=== PATIENT | female | born 1940 | race Caucasian/White ===

== ENCOUNTER 2017-01-25 08:15 | Outpatient (CLI) | payer MEDICARE, BC ==
[2017-01-25 09:05] LABS: ALT (SGPT) 14 U/L (0-55); AST (SGOT) 16 U/L (5-34); Albumin 4.2 g/dL (3.4-4.8); Alkaline Phosphatase 97 U/L (40-150); Anion Gap 12 mmol/L (10-20); BUN (Urea Nitrogen) 15 mg/dL (9.8-20.1); Bilirubin, Direct 0.3 mg/dL (0.1-0.3); Bilirubin, Total 0.6 mg/dL (0.2-1.2); Calc. Creatinine Clearance 0 mL/min (70-130); Calcium 9.3 mg/dL (7.8-10.44); Carbon Dioxide 28 mmol/L (23-31); Cardiac Risk 2.4 (Less than 4.5); Chloride 105 mmol/L (98-107); Cholesterol 190 mg/dL (< 200 Desired); Estimated GFR-MDRD 87; Glucose 95 mg/dL (83-110); HDL Cholesterol 79 mg/dL (>60 Neg Risk); LDL Cholesterol, Calculated 100 mg/dL; Potassium 4.2 mmol/L (3.5-5.1); Protein, Total 6.7 g/dL (5.8-8.1); Sodium 141 mmol/L (136-145); Triglycerides 55 mg/dL (Less than 150)
== END 2017-01-25 08:16 ==
LOC: MADLABBHPM 08:15
PROVIDERS: ATTEND Family Medicine
DX: E03.9 Hypothyroidism, unspecified (principal)
CPT/HCPCS: 36415; 80048; 80061; 80076; 84443

== ENCOUNTER 2019-06-29 09:55 | Outpatient (CLI) | payer MEDICARE, BC ==
--- NOTE | 2019-06-29 11:01 | RAD ---
EXAM: Chest 2 views: HISTORY: Chest pain COMPARISON: None. FINDINGS: There is a normal-sized cardiomediastinal silhouette. There is no evidence of consolidation, mass, or pleural effusion. The bones are unremarkable. IMPRESSION: No evidence of acute cardiopulmonary disease
--- NOTE | 2019-06-29 11:11 | RAD ---
EXAM: Left Rib series HISTORY: Chest and left rib pain COMPARISON: None FINDINGS: Multiple views of the left ribs shows no evidence of displaced rib fracture. No underlying pleural th ickening or pneumothorax are seen. IMPRESSION: 1. No evidence of displaced rib fracture.
== END 2019-06-29 09:56 | disposition home or self-care (01) ==
LOC: MADEKG 09:55
PROVIDERS: ATTEND Family Medicine
DX: R07.9 Chest pain, unspecified (principal); I49.9 Cardiac arrhythmia, unspecified
CPT/HCPCS: 71046; 93005; 93010

== ENCOUNTER 2019-11-13 08:37 | Outpatient (CLI) | payer MEDICARE, BC ==
[2019-11-13 09:00] LABS: INR-International Normal Ratio 1.8; Prothrombin Time 20.9 SEC (12.0-14.7)
== END 2019-11-13 08:38 ==
LOC: MADLABBHPM 08:37
PROVIDERS: ATTEND Family Medicine
DX: Z51.81 Encounter for therapeutic drug level monitoring (principal); I48.91 Unspecified atrial fibrillation; Z79.01 Long term (current) use of anticoagulants
CPT/HCPCS: 36415; 85610

== ENCOUNTER 2021-02-17 07:24 | Outpatient (CLI) | payer MEDICARE, BC ==
[2021-02-17 17:19] LABS: SARS-CoV-2 PCR by NAA Not Detected (NotDetected)
== END 2021-02-17 07:25 | disposition home or self-care (01) ==
LOC: MADLAB 07:24
PROVIDERS: ATTEND Internal Medicine Gastroenterology
DX: Z01.812 Encounter for preprocedural laboratory examination (principal); D12.3 Benign neoplasm of transverse colon; Z20.822 Contact with and (suspected) exposure to COVID-19
CPT/HCPCS: 87635; U0003; U0005

== ENCOUNTER 2022-10-10 09:54 | Emergency (ER) | payer MEDICARE, BC | END 2022-10-10 10:55 | disposition home or self-care (01) | LOC: MADERS 09:54 | DX: S80.12XA Contusion of left lower leg, initial encounter (principal); E03.9 Hypothyroidism, unspecified; W50.1XXA Accidental kick by another person, initial encounter ==

== ENCOUNTER 2024-03-21 08:28 | Emergency (ER) | payer MEDICARE, BC | END 2024-03-21 09:00 | disposition home or self-care (01) | LOC: MADERS 08:28 | DX: L03.012 Cellulitis of left finger (principal); E03.9 Hypothyroidism, unspecified; Z79.01 Long term (current) use of anticoagulants; Z79.899 Other long term (current) drug therapy | CPT/HCPCS: 99283 ==

== ENCOUNTER 2024-05-22 09:17 | Emergency (ER) | payer MEDICARE, BC | END 2024-05-22 10:36 | disposition home or self-care (01) | LOC: MADERS 09:17 | DX: M70.22 Olecranon bursitis, left elbow (principal); I48.91 Unspecified atrial fibrillation; E03.9 Hypothyroidism, unspecified; I10 Essential (primary) hypertension; Z79.899 Other long term (current) drug therapy; Z55.6 Problems related to health literacy; Z79.01 Long term (current) use of anticoagulants | CPT/HCPCS: 29105 ==

== ENCOUNTER 2024-05-23 13:57 | Emergency (ER) | payer MEDICARE, BC | END 2024-05-23 14:57 | disposition home or self-care (01) | LOC: MADERS 13:57 | DX: S50.02XA Contusion of left elbow, initial encounter (principal); I10 Essential (primary) hypertension; X50.9XXA Other and unspecified overexertion or strenuous movements or postures, initial encounter | CPT/HCPCS: 99283 ==

== ENCOUNTER 2025-06-06 07:26 | Outpatient (CLI) | payer MEDICARE, BC ==
[2025-06-06 08:17] LABS: #Basophils 0.1 thou/uL (0.0-0.2); #Eosinophils 0.1 thou/uL (0.0-0.7); #Lymphocytes 1.1 thou/uL (1.20-3.40); #Monocytes 0.4 thou/uL (0.11-0.59); #Neutrophils 4.4 thou/uL (1.40-6.50); %Basophils 1.0 % (0.0-1.0); %Eosinophils 1.0 % (0.0-10.0); %Lymphocytes 18.4 % (21.0-51.0); %Monocytes 7.2 % (0.0-10.0); %Neutrophils 72.4 % (42.0-75.0); Hematocrit 43.6 % (36.0-47.0); Hemoglobin 14.0 g/dL (12.0-16.0); Mean Corpuscular Hemoglobin 30.5 pg (27.0-31.0); Mean Corpuscular Volume 95.0 fl (78.0-98.0); Platelet Count 575 10x3/uL (130-400); Red Blood Cell (RBC) Count 4.59 mill/uL (4.20-5.40); White Blood Cell (WBC) Count 6.1 10x3/uL (4.8-10.8)
[2025-06-06 08:34] LABS: ALT (SGPT) 12 U/L (Less than 34); AST (SGOT) 21 U/L (11-34); Albumin 3.8 g/dL (3.1-4.5); Alkaline Phosphatase 77 U/L (40-110); Anion Gap 15 mmol/L (10-20); BUN (Urea Nitrogen) 18 mg/dL (9.8-20.1); Bilirubin, Total 0.8 mg/dL (0.3-1.2); Calc. Creatinine Clearance 0 mL/min (70-130); Calcium 8.6 mg/dL (7.8-10.44); Carbon Dioxide 26 mmol/L (23-31); Chloride 104 mmol/L (98-107); Globulin 2.3 g/dL (2.4-3.5); Glucose 92 mg/dL (83-110); Potassium 4.0 mmol/L (3.5-5.1); Sodium 141 mmol/L (136-145)
[2025-06-06 13:24] LABS: Free T4 (Free Thyroxine) 1.36 ng/dL (0.70-1.48); Vitamin B12 383.0 pg/mL (211-911)
[2025-06-08 14:57] LABS: Thyroid Peroxidase IgG Ab Less than 4.0 IU/mL (<25 Normal)
== END 2025-06-06 07:27 | disposition home or self-care (01) ==
LOC: MADLAB 07:26
PROVIDERS: ATTEND Family Medicine
DX: I10 Essential (primary) hypertension (principal); E03.9 Hypothyroidism, unspecified; D75.89 Other specified diseases of blood and blood-forming organs
CPT/HCPCS: 36415; 80053; 82607; 82746; 84439; 84443; 84481; 85025; 86376